=== PATIENT | female | born 2000 | race African-American/Black ===

== ENCOUNTER 2024-12-15 11:59 | Emergency (ER) | payer OTHER ==
[~2024-12-15] VITALS: Ht 167.6 cm; Wt 81.0 kg
[~2024-12-15 11:59] MED LIST: CEPH-558 PO; HYDR-4062 PO
[2024-12-15 12:03] VITALS: BP 134/70; PULSE 81; RESP 18; TEMP 98; O2SAT 98
== END 2024-12-15 13:56 | disposition home or self-care (01) ==
LOC: EMS 12:03
DX: L76.22 Postprocedural hemorrhage of skin and subcutaneous tissue following other procedure (principal); Z91.199 Patient's noncompliance with other medical treatment and regimen due to unspecified reason
CPT/HCPCS: 99282; Z7502